=== PATIENT | female | born 1950 | race Caucasian/White ===

== ENCOUNTER 2023-02-14 06:21 | Observation (INO) | payer MEDICARE, OTHER ==
[2023-02-14 09:54] VITALS: BMI 39.4
[2023-02-14] MEDS ORDERED: Ondansetron ODT 4 MG TAB PO PRN (10:07)
[2023-02-14] MEDS ORDERED: Acetaminophen 325 MG TAB PO PRN (10:07)
[2023-02-14 11:17] LABS: Troponin I 0.035 ng/mL (< 0.028)
[2023-02-14] MEDS ORDERED: Senokot S 8.6-50 MG TAB PO PRN (11:46)
[2023-02-14] MEDS ORDERED: Promethazine 25 MG TAB PO PRN (11:51)
[2023-02-14] MEDS ORDERED: Cyclobenzaprine 10 MG TAB PO PRN (11:51)
[2023-02-14] MEDS ORDERED: Zolpidem Tartrate 5 MG TAB PO PRN (11:59)
[2023-02-14 13:52] LABS: Troponin I 0.044 ng/mL (< 0.028)
[2023-02-14] MEDS ORDERED: Furosemide 20 MG/2 ML VIAL SLOW IVP SCH (14:00)
[2023-02-14 16:58] LABS: CKMB 2.9 ng/mL (0-6.6)
[2023-02-14] MEDS ORDERED: Atorvastatin Calcium 40 MG TAB PO SCH (21:00)
[2023-02-14] MEDS ORDERED: traZODone HCl 50 MG TAB PO SCH (21:00)
[2023-02-14] MEDS ORDERED: Ketorolac Tromethamine 30 MG/ML VIAL IVP SCH (23:15)
[2023-02-15 04:52] LABS: #Eosinphils 0.4 thou/uL (0.0-0.7); #Monocytes 1.2 thou/uL (0.11-0.59); #Neutrophils 6.3 thou/uL (1.40-6.50); %Basophils 0.4 % (0.0-1.0); %Eosinophils 4.1 % (0.0-10.0); %Lymphocytes 16.5 % (21.0-51.0); %Monocytes 12.8 % (0.0-10.0); %Neutrophils 65.9 % (42.0-75.0); Hemoglobin 11.3 g/dL (12.0-16.0); Mean Corpuscular HGB CONC 30.8 g/dL (32.0-36.0); Mean Corpuscular Hemoglobin 26.7 pg (27.0-31.0); Mean Corpuscular Volume 86.8 fl (78.0-98.0); Mean Platelet Volume 10.7 fL (7.4-10.4); Platelet Count 203 10x3/uL (130-400); Red Blood Cell (RBC) Count 4.23 mill/uL (4.20-5.40); White Blood Cell (WBC) Count 9.5 10x3/uL (4.8-10.8)
[2023-02-15 05:18] LABS: Anion Gap 13 mmol/L (10-20); BUN (Urea Nitrogen) 24 mg/dL (9.8-20.1); Calc. Creatinine Clearance 93 mL/min (70-130); Calcium 9.5 mg/dL (7.8-10.44); Carbon Dioxide 27 mmol/L (23-31); Cardiac Risk 4.3 (Less than 4.5); Chloride 103 mmol/L (98-107); Cholesterol 167 mg/dl (< 200 Desired); Estimated GFR 53; Glucose 121 mg/dL (83-110); HDL Cholesterol 39 mg/dL (>60 Neg Risk); LDL Cholesterol, Calculated 97 mg/dL; Magnesium 1.8 mg/dL (1.6-2.6); Potassium 3.5 mmol/L (3.5-5.1); Sodium 139 mmol/L (136-145); Triglycerides 155 mg/dL (Less than 150)
[2023-02-15] MEDS ORDERED: FLUoxetine HCl 20 MG CAP PO SCH (09:00)
[2023-02-15] MEDS ORDERED: Potassium Chloride 20 MEQ TAB PO SCH (09:00)
[2023-02-15 11:30] VITALS: TEMP 98.3
[2023-02-15 12:35] VITALS: BP 136/61
== END 2023-02-15 14:30 | disposition home health service (06) ==
LOC: 2SW 08:59
PROVIDERS: ADMIT Student in an Organized Health Care Education/Training Program; ATTEND Student in an Organized Health Care Education/Training Program
DX: S81.811A Laceration without foreign body, right lower leg, initial encounter (principal); R55 Syncope and collapse; I35.0 Nonrheumatic aortic (valve) stenosis; I10 Essential (primary) hypertension; E78.5 Hyperlipidemia, unspecified; I48.0 Paroxysmal atrial fibrillation; R06.09 Other forms of dyspnea; F41.8 Other specified anxiety disorders; M19.90 Unspecified osteoarthritis, unspecified site; Z86.73 Personal history of transient ischemic attack (TIA), and cerebral infarction without residual deficits; Z90.49 Acquired absence of other specified parts of digestive tract; Z90.710 Acquired absence of both cervix and uterus; Z79.01 Long term (current) use of anticoagulants; Z88.0 Allergy status to penicillin; Z88.1 Allergy status to other antibiotic agents; W19.XXXA Unspecified fall, initial encounter
CPT/HCPCS: 36415; 71045; 80048; 80053; 80061; 82553; 83735; 84443; 84484; 85025; 93005; 93010; 93306; 93880; 94760; J1650; J1885; J1940; S0020

== ENCOUNTER 2023-06-05 01:17 | Observation (INO) | payer OTHER ==
[2023-06-05] MEDS ORDERED: Ondansetron ODT 4 MG TAB PO PRN (02:21)
[2023-06-05] MEDS ORDERED: Nitroglycerin 0.4 MG TAB (25 Tab Bottle) SL PRN (02:21)
[2023-06-05] MEDS ORDERED: Ondansetron PF 4 MG/2 ML Vial IVP PRN (02:21)
[2023-06-05] MEDS ORDERED: Heparin 25,000 units/D5W 500 ML IVPB SCH (02:45)
[2023-06-05 03:05] VITALS: BMI 37.0
[2023-06-05 03:20] LABS: Hematocrit 37.6 % (36.0-47.0); Hemoglobin 11.8 g/dL (12.0-16.0); Mean Corpuscular HGB CONC 31.4 g/dL (32.0-36.0); Mean Corpuscular Hemoglobin 26.9 pg (27.0-31.0); Mean Corpuscular Volume 85.8 fl (78.0-98.0); RBC Distribution Width 15.1 % (11.5-14.5); Red Blood Cell (RBC) Count 4.38 mill/uL (4.20-5.40); White Blood Cell (WBC) Count 9.9 10x3/uL (4.8-10.8)
[2023-06-05 03:21] LABS: #Basophils 0.1 thou/uL (0.0-0.2); #Eosinphils 0.3 thou/uL (0.0-0.7); #Neutrophils 5.8 thou/uL (1.40-6.50); %Basophils 0.5 % (0.0-1.0); %Eosinophils 3.1 % (0.0-10.0); %Lymphocytes 27.9 % (21.0-51.0); %Monocytes 10.4 % (0.0-10.0); %Neutrophils 57.9 % (42.0-75.0); Mean Platelet Volume 10.9 fL (7.4-10.4); Platelet Count 243 10x3/uL (130-400)
[2023-06-05 03:45] LABS: Anion Gap 16 mmol/L (10-20); BUN (Urea Nitrogen) 31 mg/dL (9.8-20.1); Calc. Creatinine Clearance 76 mL/min (70-130); Calcium 9.7 mg/dL (7.8-10.44); Carbon Dioxide 26 mmol/L (23-31); Cardiac Risk 4.9 (Less than 4.5); Chloride 98 mmol/L (98-107); Cholesterol 193 mg/dl (< 200 Desired); Estimated GFR 45; Glucose 98 mg/dL (83-110); HDL Cholesterol 39 mg/dL (>60 Neg Risk); LDL Cholesterol, Calculated 120 mg/dL; Potassium 3.4 mmol/L (3.5-5.1); Sodium 137 mmol/L (136-145); Triglycerides 169 mg/dL (Less than 150)
[2023-06-05 03:49] LABS: Troponin I 0.049 ng/mL (< 0.028)
[2023-06-05] MEDS: Sodium Chloride 0.9% 1,000 ML IV SCH ×2 (06:32→06:57)
[2023-06-05] MEDS: Aspirin Chewable 81 MG TAB PO SCH (09:19)
[2023-06-05] MEDS: Dronedarone HCl 400 MG TAB PO SCH (16:56)
[2023-06-06] MEDS ORDERED: Heparin 10,000 UNITS/ 10 ML VIAL SLOW IVP SCH (01:45)
[2023-06-06] MEDS: Aspirin Chewable 81 MG TAB PO SCH (09:31)
[2023-06-06] MEDS: Ezetimibe 10 MG TAB PO SCH (09:31)
[2023-06-06] MEDS: Dronedarone HCl 400 MG TAB PO SCH ×2 (09:32→18:40)
[2023-06-06] MEDS ORDERED: Zolpidem Tartrate 5 MG TAB PO PRN (09:55)
[2023-06-06] MEDS ORDERED: Regadenoson 0.4 MG/5 ML SYRINGE ONE (09:56)
[2023-06-06 12:28] LABS: #Basophils 0.1 thou/uL (0.0-0.2); #Eosinphils 0.2 thou/uL (0.0-0.7); #Monocytes 0.7 thou/uL (0.11-0.59); #Neutrophils 4.6 thou/uL (1.40-6.50); %Basophils 0.8 % (0.0-1.0); %Eosinophils 3.1 % (0.0-10.0); %Lymphocytes 23.7 % (21.0-51.0); %Monocytes 9.2 % (0.0-10.0); %Neutrophils 60.6 % (42.0-75.0); Hematocrit 37.7 % (36.0-47.0); Hemoglobin 11.9 g/dL (12.0-16.0); Mean Corpuscular HGB CONC 31.6 g/dL (32.0-36.0); Mean Corpuscular Hemoglobin 26.7 pg (27.0-31.0); Mean Corpuscular Volume 84.7 fl (78.0-98.0); Mean Platelet Volume 12.2 fL (7.4-10.4); Platelet Count 170 10x3/uL (130-400); RBC Distribution Width 14.9 % (11.5-14.5); Red Blood Cell (RBC) Count 4.45 mill/uL (4.20-5.40); White Blood Cell (WBC) Count 7.6 10x3/uL (4.8-10.8)
[2023-06-06 12:33] LABS: Anion Gap 15 mmol/L (10-20); BUN (Urea Nitrogen) 18 mg/dL (9.8-20.1); Calc. Creatinine Clearance 81 mL/min (70-130); Calcium 9.8 mg/dL (7.8-10.44); Carbon Dioxide 26 mmol/L (23-31); Chloride 99 mmol/L (98-107); Estimated GFR 49; Glucose 103 mg/dL (83-110); Potassium 3.6 mmol/L (3.5-5.1); Sodium 136 mmol/L (136-145)
[2023-06-06] MEDS ORDERED: traZODone HCl 50 MG TAB PO SCH (21:00)
[2023-06-07 02:51] LABS: #Basophils 0.1 thou/uL (0.0-0.2); #Eosinphils 0.4 thou/uL (0.0-0.7); #Monocytes 1.2 thou/uL (0.11-0.59); #Neutrophils 4.9 thou/uL (1.40-6.50); %Basophils 0.6 % (0.0-1.0); %Eosinophils 4.6 % (0.0-10.0); %Lymphocytes 22.7 % (21.0-51.0); %Monocytes 13.9 % (0.0-10.0); %Neutrophils 58.1 % (42.0-75.0); Hematocrit 34.7 % (36.0-47.0); Hemoglobin 10.9 g/dL (12.0-16.0); Mean Corpuscular HGB CONC 31.4 g/dL (32.0-36.0); Mean Corpuscular Hemoglobin 27.2 pg (27.0-31.0); Mean Corpuscular Volume 86.5 fl (78.0-98.0); Mean Platelet Volume 11.2 fL (7.4-10.4); Platelet Count 210 10x3/uL (130-400); Red Blood Cell (RBC) Count 4.01 mill/uL (4.20-5.40); White Blood Cell (WBC) Count 8.4 10x3/uL (4.8-10.8)
[2023-06-07 03:45] LABS: Anion Gap 17 mmol/L (10-20); BUN (Urea Nitrogen) 16 mg/dL (9.8-20.1); Calc. Creatinine Clearance 91 mL/min (70-130); Calcium 9.3 mg/dL (7.8-10.44); Carbon Dioxide 24 mmol/L (23-31); Chloride 101 mmol/L (98-107); Estimated GFR 55; Glucose 113 mg/dL (83-110); Potassium 3.4 mmol/L (3.5-5.1); Sodium 139 mmol/L (136-145)
[2023-06-07] MEDS ORDERED: FLUoxetine HCl 20 MG CAP PO SCH (09:00)
[2023-06-07] MEDS ORDERED: Lisinopril/Hydrochlorothiazide 20/25 mg Tablet PO SCH (09:00)
[2023-06-07] MEDS: Aspirin Chewable 81 MG TAB PO SCH (09:57)
[2023-06-07] MEDS: Ezetimibe 10 MG TAB PO SCH (09:57)
[2023-06-07] MEDS: Dronedarone HCl 400 MG TAB PO SCH ×2 (09:57→16:59)
[2023-06-07 16:35] VITALS: BP 98/58; TEMP 97.8
[2023-06-07] MEDS ORDERED: Atorvastatin Calcium 20 MG TAB PO SCH (21:00)
[2023-06-07] MEDS ORDERED: Apixaban 5 MG TAB PO SCH (21:00)
[2023-06-07] MEDS ORDERED: Atorvastatin Calcium 40 MG TAB PO SCH (21:00)
== END 2023-06-07 18:30 | disposition home or self-care (01) ==
LOC: 2SW 02:14
PROVIDERS: ADMIT Student in an Organized Health Care Education/Training Program; ATTEND Hospitalist
DX: I48.0 Paroxysmal atrial fibrillation (principal); I11.0 Hypertensive heart disease with heart failure; I50.9 Heart failure, unspecified; E78.5 Hyperlipidemia, unspecified; I35.0 Nonrheumatic aortic (valve) stenosis; I21.4 Non-ST elevation (NSTEMI) myocardial infarction; N17.9 Acute kidney failure, unspecified; I21.A1 Myocardial infarction type 2; E87.6 Hypokalemia; Z90.49 Acquired absence of other specified parts of digestive tract; Z90.710 Acquired absence of both cervix and uterus; Z96.649 Presence of unspecified artificial hip joint; Z87.891 Personal history of nicotine dependence; Z79.01 Long term (current) use of anticoagulants; Z79.899 Other long term (current) drug therapy; Z88.1 Allergy status to other antibiotic agents; Z88.0 Allergy status to penicillin; Z88.5 Allergy status to narcotic agent; Z79.82 Long term (current) use of aspirin
CPT/HCPCS: 71045; 78452; 80048 ×3; 80053; 80061; 84484 ×3; 85025 ×4; 85610; 85730 ×5; 93005; 93017; 93306; 96374; 96376; A9500; G0378 ×3; J2785; 36415; J1644; J2405; J7050

== ENCOUNTER 2023-08-24 17:00 | Outpatient (CLI) | payer OTHER | END 2023-08-24 17:01 | disposition home or self-care (01) | LOC: SLEEPLAB 17:00 | PROVIDERS: ATTEND Internal Medicine Critical Care Medicine | DX: G47.33 Obstructive sleep apnea (adult) (pediatric) (principal); G47.61 Periodic limb movement disorder | CPT/HCPCS: 95811 ==

== ENCOUNTER 2023-09-29 16:00 | Outpatient (CLI) | payer OTHER | END 2023-09-29 16:01 | disposition home or self-care (01) | LOC: SLEEPLAB 16:00 | PROVIDERS: ATTEND Internal Medicine Critical Care Medicine | DX: G47.33 Obstructive sleep apnea (adult) (pediatric) (principal); G47.00 Insomnia, unspecified; I11.0 Hypertensive heart disease with heart failure; I50.9 Heart failure, unspecified; R06.83 Snoring; G47.10 Hypersomnia, unspecified; R00.0 Tachycardia, unspecified; Z68.36 Body mass index [BMI] 36.0-36.9, adult | CPT/HCPCS: 95811 ==